=== PATIENT | female | born 1985 | race Caucasian/White ===

== ENCOUNTER 2017-09-11 09:47 | Inpatient (IN) | payer OTHER ==
[2017-09-11] MEDS ORDERED: OXYTOCIN 10 UNIT/ML 1 ML VIAL IM PRN (11:12)
[2017-09-11] MEDS ORDERED: CARBOPROST TROMETHAMINE 250 MCG/ML 1 ML AMP IM PRN (11:12)
[2017-09-11] MEDS ORDERED: LIDOCAINE 1% (PF) 10 MG/ML (30 ML SDV) SQ PRN (11:12)
[2017-09-11] MEDS ORDERED: METHYLERGONOVINE 0.2 MG/ML 1 ML AMP IM PRN (11:12)
[2017-09-11] MEDS ORDERED: TERBUTALINE 1 MG/ML VIAL SQ PRN (11:12)
[2017-09-11 11:30] LABS: Basophils % (A) 0 %; Eosinophils # (A) 0.1 k/uL (0-0.7); Eosinophils % (A) 1 %; HCT 39.1 % (34.0-46.0); HGB 13.5 gm/dL (11.4-16.0); Lymphocytes # (A) 1.3 k/uL (1.0-4.8); Lymphocytes % (A) 10 %; MCH 32.5 pg (25.0-35.0); MCHC 34.7 g/dL (31.0-37.0); MCV 93.8 fL (80.0-100.0); Mean Platelet Volume 6.9; Monocytes # (A) 0.5 k/uL (0-1.0); Monocytes % (A) 4 %; Neutrophils # (A) 10.5 k/uL (1.3-7.7); Neutrophils % (A) 84 %; Platelet Count 255 k/uL (150-450); RBC 4.16 m/uL (3.80-5.40); RDW 12.9 % (11.5-15.5); WBC 12.5 k/uL (3.8-10.6)
[2017-09-11 11:36] VITALS: BMI 27.6
[2017-09-11] MEDS: LACTATED RINGERS 1,000 ML IV SCH (11:52)
--- NOTE | 2017-09-11 13:26 | P.HPOB ---
History of Present Illness H&P Date: 09/11/17 Chief Complaint: IUP @ 37 2/7 weeks, Active labor This is a very pleasant 31-year-old 2 para 0100 at 37-2/7 weeks with an estimated due date of 09/30/2017. Patient presents with complaints of contractions every 5 minutes and was noted to be 3 cm on initial exam. She denies loss of fluid, vaginal bleeding. She does have a history of a prior 26 week vaginal delivery On blood work blood type of O+, rubella immune, hepatitis B surface antigen negative, GBS negative, HIV negative, RPR nonreactive She has been receiving care with Dr. Moraes since 10 weeks of , positive UDS for marijuana as of 08/28/2017. Review of Systems Constitutional: Denies chills, Denies fever Ears, nose, mouth and throat: Denies headache Cardiovascular: Reports edema Respiratory: Denies cough, Denies dyspnea Gastrointestinal: Denies constipation, Denies diarrhea Genitourinary: Reports Past Medical History Additional Past Medical History / Comment(s): Degenerative disc disease History of Any Multi-Drug Resistant Organisms: None Reported Past Surgical History: No Surgical Hx Reported Past Anesthesia/Blood Transfusion Reactions: No Reported Reaction Past Psychological History: No Psychological Hx Reported Smoking Status: Current every day smoker - Past Family History Father Family Medical History: Cancer Additional Family Medical History / Comment(s): Bone and Lung Medications and Allergies Home Medications Medication Instructions Recorded Confirmed Type Pnv,Calcium 72/Iron/Folic Acid 1 tab PO DAILY 09/11/17 09/11/17 History [ Plus Tablet] Allergies Allergy/AdvReac Type Severity Reaction Status Date / Time Penicillins Allergy Swelling Verified 09/11/17 10:15 Exam Osteopathic Statement: *. No significant issues noted on an osteopathic structural exam other than those noted in the History and Physical/Consult. - Vital Signs Vital signs: Vital Signs Temp Pulse Resp BP 09/11/17 11:29 16 108/68 09/11/17 10:16 97.3 F L 85 16 116/66 Intake and Output 09/10/17 09/11/17 09/11/17 22:59 06:59 14:59 Other: Weight 62.142 kg - OBG Physical Exam Abdomen: gravid Cervix: 3/70/-3 Uterus: gravid and appropriate for GA Results Result Diagrams: 09/11/17 11:10 Abnormal Lab Results - Last 24 Hours (Table) 09/11/17 Range/Units 11:10 WBC 12.5 H (3.8-10.6) k/uL Neutrophils # 10.5 H (1.3-7.7) k/uL Assessment and Plan (1) Active labor at term Current Visit: Yes Status: Acute Code(s): DKM9833 - SNOMED Code(s): 03201852 (2) Term Current Visit: Yes Status: Acute Code(s): Z34.80 - ENCOUNTER FOR SUPRVSN OF NORMAL , UNSP TRIMESTER SNOMED Code(s): 13103608 (3) Marijuana use Current Visit: Yes Status: Acute Code(s): F12.90 - CANNABIS USE, UNSPECIFIED , UNCOMPLICATED SNOMED Code(s): 107142301 Plan: We'll admit to labor and delivery for expectant management. Amniotomy when appropriate. Patient declines epidural at this time.
--- NOTE | 2017-09-11 13:55 | P.MSEPDOC ---
Presenting Problems - Arrival Data Date of Arrival on Unit: 09/11/17 Time of Arrival on Unit: 09:30 Mode of Transport: Ambulatory - Complaint OB-Reason for Admission/Chief Complaint: Possible Onset of Labor Comment: Contractions; 10/20 Medical History - Information : 2 Para: 1 Term: 0 : 1 Abortions: Spontaneous or Elective: 0 Number of Living Children: 1 - Gestational Age Gestational Age by YUMIKO (wks/days): 37 Weeks and 2 Days - History Complications: Smoker Review of Systems - Review of Systems Constitutional: No problems Breast: No problems ENT: No problems Cardiovascular: No problems Respiratory: No problems Gastrointestinal: No problems Genitourinary: No problems Musculoskeletal: No problems Neurological: No problems Skin: No problems Vital Signs - Temperature Temperature: 97.3 F Temperature Source: Temporal Artery Scan - Pulse Right Sitting Brachial Pulse Rate: 85 Pulse Assessment Method: Automatic Cuff - Respirations Respiratory Rate: 16 Oxygen Delivery Method: Room Air - Blood Pressure Left Arm Sitting Blood Pressure: 108/68 Blood Pressure Mean: 81 Blood Pressure Source: Automatic Cuff Medical Screen Scoring (Pre) - Cervical Exam Dilation: 1-3 cm = 1 Effacement: More than 50% = 2 Membranes: Intact - Uterine Contractions Duration: > 40 seconds = 2 Intensity: Contraction palpated strong = 1 - Maternal Vital Signs Maternal Temperature: N/A Maternal Blood Pressure: N/A Signs of Preeclampsia: N/A Maternal Respirations: N/A - Assessment Baseline FHR: 140 Heart Rate - NICHD Category: Category I (Normal) = 0 NST: Reactive Position: N/A Station: N/A - Total Score Total Score (Pre): 6 - Level of Risk Level of Risk: Medium (6-9) Physician Notification (Pre) - Physician Notified Physician Notified Date: 09/11/17 Physician Notified Time: 11:00 Physician/Practitioner Notifed:: Martha Spoke With: Martha New Order Received: Yes - Notification Comment Comment: Admit for labor Disposition - Disposition OB Disposition: Admit, LDRP Suite Discharge Date: 09/11/17 Discharge Time: 11:00 I agree with the RN Medical Screening Exam: Yes Risk & Benefit of care provided described in d/c instruction: Yes Diagnosis: RELATED CONDITIONS, UNSPECIFIED, THIRD TRIMESTER
[2017-09-11] MEDS: BUTORPHANOL 1 MG/ML 1 ML VIAL IV PRN ×2 (13:56→16:40)
[2017-09-11 14:19] LABS: Amphetamine Screen,Urine Not Detected (NotDetected); Barbiturate Screen,Urine Not Detected (NotDetected); Benzodiazepines Screen,Urine Not Detected (NotDetected); Cocaine Screen,Urine Not Detected (NotDetected); Methadone Screen, Urine Not Detected (NotDetected); Opiate Screen,Urine Not Detected (NotDetected); Oxycodone Screen, Urine Not Detected (NotDetected); Phencyclidine Screen,Urine Not Detected (NotDetected); Tricyclic Antidepressant,Urine Not Detected (NotDetected); Urn Cannabinoid Scrn Detected (NotDetected)
[2017-09-11] MEDS ORDERED: diphenhydrAMINE 25 MG CAP PO PRN (16:57)
[2017-09-11] MEDS ORDERED: WITCH HAZEL 1 EACH MED..PAD TOPICAL PRN (16:57)
[2017-09-11] MEDS ORDERED: SIMETHICONE 80 MG CHEWABLE PO PRN (16:57)
[2017-09-11] MEDS ORDERED: ACETAMINOPHEN TAB 325 MG TAB PO PRN (16:57)
[2017-09-11] MEDS ORDERED: diphenhydrAMINE 50 MG/ML 1 ML VIAL IVP PRN ×2 (16:57)
[2017-09-11] MEDS ORDERED: ZOLPIDEM 5 MG TAB PO PRN (16:57)
[2017-09-11] MEDS ORDERED: IBUPROFEN 600 MG TAB PO PRN (16:57)
[2017-09-11] MEDS ORDERED: BENZOCAINE/MENTHOL SPRAY 1 GM/SPRAY AEROSOL TOPICAL PRN (16:57)
[2017-09-11] MEDS ORDERED: HYDROCORTISONE 2.5% RECTAL CREAM 30 GM TUBE RECTAL PRN (16:57)
[2017-09-11] MEDS ORDERED: LANOLIN CREAM 5 GM TUBE TOPICAL PRN (16:57)
[2017-09-11] MEDS ORDERED: diphenhydrAMINE 50 MG CAP PO PRN (16:57)
[2017-09-11] MEDS ORDERED: OXYTOCIN 20 UNITS/1000 ML NS 1,000 ML IV SCH (17:00)
[2017-09-12 05:42] VITALS: RESP 16
[2017-09-12] MEDS: SENNOSIDES-DOCUSATE SODIUM 1 EACH TAB PO SCH ×2 (05:56→12:44)
[2017-09-12] MEDS: LACTATED RINGERS 1,000 ML IV SCH (05:56)
[2017-09-12 08:02] LABS: Basophils % (A) 0 %; Eosinophils # (A) 0.1 k/uL (0-0.7); Eosinophils % (A) 0 %; HCT 33.1 % (34.0-46.0); HGB 11.1 gm/dL (11.4-16.0); Lymphocytes # (A) 1.6 k/uL (1.0-4.8); Lymphocytes % (A) 9 %; MCH 32.2 pg (25.0-35.0); MCHC 33.6 g/dL (31.0-37.0); MCV 95.7 fL (80.0-100.0); Mean Platelet Volume 7.3; Monocytes # (A) 0.9 k/uL (0-1.0); Monocytes % (A) 5 %; Neutrophils # (A) 15.4 k/uL (1.3-7.7); Neutrophils % (A) 85 %; Platelet Count 250 k/uL (150-450); RBC 3.45 m/uL (3.80-5.40); RDW 13.1 % (11.5-15.5); WBC 18.2 k/uL (3.8-10.6)
[2017-09-12] MEDS ORDERED: PRENATAL VIT-IRON-FOLIC ACID 1 EACH CAP PO SCH (09:00)
--- NOTE | 2017-09-12 09:44 | P.DS ---
Providers Date of admission: 09/11/17 10:45 Expected date of discharge: 09/12/17 Attending physician: Beata Thomas Primary care physician: Stated None - Discharge Diagnosis(es) (1) Active labor at term Current Visit: Yes Status: Acute (2) Term Current Visit: Yes Status: Acute (3) Marijuana use Current Visit: Yes Status: Acute Hospital Course: This is a very pleasant 31-year-old 2 para 0100 at 37-2/7 weeks that presented to labor and delivery in active labor. Patient progressed through labor amniotomy was performed clear fluid was obtained. Patient progressed to complete and had a normal spontaneous vaginal delivery of a viable male at 1631, weight of 6 lbs. 0 oz. Patient has done well . She tolerated is tolerating a regular diet without nausea or vomiting, she states her pain is well-controlled at this point. She does desire discharge home on day #1. Plan - Discharge Summary Discharge Rx Participant: Yes New Discharge Prescriptions: No Action Pnv,Calcium 72/Iron/Folic Acid [ Plus Tablet] 1 tab PO DAILY Discharge Medication List Pnv,Calcium 72/Iron/Folic Acid [ Plus Tablet] 1 tab PO DAILY 09/11/17 [ History] Follow up Appointment(s)/Referral(s): Eliza Moraes MD [STAFF PHYSICIAN] - 6 Weeks Discharge Disposition: HOME SELF-CARE
[2017-09-12 19:54] VITALS: BP 112/51; PULSE 75; TEMP 98.1
--- NOTE | 2017-09-16 15:35 | P.PROBDLV ---
Vaginal Delivery Note - . Vaginal Delivery Note: This is a very pleasant 31-year-old 2 para 0100 at 37-2/7 weeks with an estimated due date of 09/30/2017. Patient presented to labor and delivery in active labor. Patient progressed through labor eventually amniotomy was performed yielding clear fluid. Patient progressed to complete, began pushing and had a normal spontaneous vaginal delivery of a viable male infant at 1631, placenta was delivered spontaneously intact without difficulty. On inspection the patient's vaginal vault a first-degree vaginal laceration was noted this was repaired in usual fashion with 3-0 Rapide. Estimated blood loss was approximately 300 mL. weight 6 lbs. 0 oz., Apgars of 8-9 at one and 5 minutes respectively. Patient and infant tolerated delivery well and are resting comfortably.
== END 2017-09-12 17:00 | disposition home or self-care (01) | DRG 775 ==
LOC: FBPOP 09:47 → 4FBP 10:45
PROVIDERS: ADMIT Obstetrics & Gynecology Obstetrics; ATTEND Obstetrics & Gynecology Obstetrics
PROC: 0KQM0ZZ Repair Perineum Muscle, Open Approach (ICD-10-PCS; principal; 2017-09-11)
PROC: 10E0XZZ Delivery of Products of Conception, External Approach (ICD-10-PCS; principal; 2017-09-11)
PROC: 10907ZC Drainage of Amniotic Fluid, Therapeutic from Products of Conception, Via Natural or Artificial Opening (ICD-10-PCS; principal; 2017-09-11)
DX: O99.334 Smoking (tobacco) complicating childbirth (principal); Z37.0 Single live birth; F17.200 Nicotine dependence, unspecified, uncomplicated; Z3A.37 37 weeks gestation of pregnancy; O99.324 Drug use complicating childbirth; F12.90 Cannabis use, unspecified, uncomplicated; O71.4 Obstetric high vaginal laceration alone
CPT/HCPCS: 59025; 80306; 85025; 88307; 99213

== ENCOUNTER 2021-12-05 16:55 | Emergency (ER) | payer OTHER ==
[2021-12-05] MEDS ORDERED: SODIUM CHLORIDE 0.9% 1,000 ML IV STA (19:08)
[2021-12-05] MEDS ORDERED: KETOROLAC 15 MG/ML 1 ML VIAL IVP STA (19:08)
--- NOTE | 2021-12-05 19:26 | XR ---
EXAMINATION TYPE: XR KUB 2 views DATE OF EXAM: 12/05/2021 7:11 PM CLINICAL HISTORY: Left lower quadrant pain for days TECHNIQUE: 2 upright views COMPARISON: 02/17/2011 FINDINGS: Scattered gas is seen in non-distended small bowel loops. Gas and fecal material is seen in non-distended colon. There is no visceromegaly, pneumoperitoneum, or abnormal calcification apprecia cassia. The lung bases are clear and the osseous structures are intact. IMPRESSION: No definite acute radiographic process, although pancolonic stool volume is prominent in degree.
--- NOTE | 2021-12-05 19:35 | ED ---
Abdominal Pain HPI - General Chief Complaint: Abdominal Pain Stated Complaint: Abd pain Time Seen by Provider: 12/05/21 19:04 Source: patient, RN notes reviewed Mode of arrival: ambulatory Limitations: no limitations - History of Present Illness Initial Comments: Is a pleasant 36-year-old female who developed left pelvic pain when she was having sexual intercourse about 4 hours ago. Patient now has had constant sharp pain to the left pelvis. Denies vaginal bleeding or vaginal discharge. She had no symptomology prior to onset. Patient states the pain is exacerbated by palpation. Really does not radiate. No headache, no fever or chills, no changes in vision or hearing, no sore throat or difficulty with speech, no neck pain, no chest pain or shortness of breath, no abdominal pain, no nausea or vomiting, no changes in urination or bowel movements, no numbness or tingling, no extremity pain, no skin rashes or lesions. Past medical, surgical, social, and family history reviewed. Last menstrual. November 11 - Related Data Previous Rx's Medication Instructions Recorded HYDROcodone/APAP 5-325MG [[place] 1 tab PO Q6HR PRN 3 Days #12 tab 12/07/21 5-325] Allergies Allergy/AdvReac Type Severity Reaction Status Date / Time banana Allergy Swelling Verified 12/06/21 22:20 Penicillins Allergy Anaphylaxis Verified 12/06/21 22:20 Review of Systems ROS Statement: Those systems with pertinent positive or pertinent negative responses have been documented in the HPI. ROS Other: All systems not noted in ROS Statement are negative. Past Medical History Additional Past Medical History / Comment(s): Degenerative disc disease History of Any Multi-Drug Resistant Organisms: None Reported Past Surgical History: No Surgical Hx Reported Past Anesthesia/Blood Transfusion Reactions: No Reported Reaction Past Psychological History: No Psychological Hx Reported Smoking Status: Current every day smoker Past Alcohol Use History: Occasional Past Drug Use History: Marijuana - Past Family History Father Family Medical History: Cancer Additional Family Medical History / Comment(s): Bone and Lung General Exam - General Exam Comments Initial Comments: He does not appear to be ill or toxic. Patient in distress secondary to left pelvic pain. Limitations: no limitations General appearance: in distress Head exam: Present: atraumatic, normocephalic, normal inspection Eye exam: Present: normal appearance, PERRL, EOMI. Absent: scleral icterus, conjunctival injection, periorbital swelling ENT exam: Present: normal exam, mucous membranes moist Neck exam: Present: normal inspection. Absent: tenderness, meningismus, lymphadenopathy Respiratory exam: Present: normal lung sounds bilaterally. Absent: respiratory distress, wheezes, rales, rhonchi, stridor Cardiovascular Exam: Present: regular rate, normal rhythm, normal heart sounds. Absent: systolic murmur, diastolic murmur, rubs, gallop, clicks GI/Abdominal exam: Present: soft, normal bowel sounds. Absent: distended, tenderness, guarding, rebound, rigid Extremities exam: Present: normal inspection, full ROM, normal capillary refill. Absent: tenderness, pedal edema, joint swelling, calf tenderness Back exam: Present: normal inspection Neurological exam: Present: alert, oriented X3, CN II-XII intact Psychiatric exam: Present: normal affect, normal mood Skin exam: Present: warm, dry, intact, normal color. Absent: rash Course Vital Signs 12/05/21 12/05/21 12/05/21 17:47 20:57 21:23 Temperature 98.4 F Pulse Rate 87 86 92 Pulse Rate [ Handle Turner ] Respiratory 20 20 18 Rate Blood Pressure 117/76 123/77 113/68 Blood Pressure [Right Arm] O2 Sat by Pulse 99 100 100 Oximetry 12/05/21 12/05/21 12/05/21 22:32 22:44 22:58 Temperature 97.6 F Pulse Rate Pulse Rate [ 105 H 99 101 H Handle Turner ] Respiratory 16 16 16 Rate Blood Pressure Blood Pressure 137/73 123/59 128/61 [Right Arm] O2 Sat by Pulse 100 100 100 Oximetry - Reevaluation(s) Reevaluation #1: 12/05/21 20:19 Due to call from the radiologist was concerned about left-sided ovarian torsion. Patient moved to trauma room. Added on a serum hCG. Urine hCG is negative. At it on coagulation studies and type and screen. Reevaluation #2: 12/05/21 20:31 Ultrasound consistent with ovarian torsion. Discussed the case in detail with the on-call tutor. - Consultations Consultation #1: Case discussed in detail with Dr. Guerrero who will come to the ER to evaluate the patient and likely take her to surgery for laparoscopic ovarian detorsion possible salpingo-oophorectomy Medical Decision Making - Medical Decision Making Differential would be mostly consistent with ovarian pathology. Ruptured ovarian cyst versus ovarian torsion given the sudden onset of pain. Think this is less likely to be ureteral colic as the pain started during sexual activity. However, this certainly is within the differential. Patient has no abdominal tenderness elsewhere. Patient only tender in the left pelvic area. Unlikely to be PID. Patient has no vaginal discharge or vaginal bleeding. Given the time of the last Menser., Mittelschmerz as a possibility as well. Transvaginal ultrasound reveals enlarged and heterogenous left ovary with no discernible arterial blood flow within the ovary. According to radiology, could see some venous flow inside the ovary. Question portion. Moderate amount of free fluid seen within the left adnexa. Some free fluid seen in the posterior cul-de-sac. Left ovary measured 4.3 x 4.1 x 3.5 cm. Right ovary was unremarkable. Uterus unremarkable. - Lab Data Result diagrams: 12/05/21 08:25 12/05/21 08:25 Lab Results 12/05/21 12/05/21 12/05/21 Range/Units 08:25 08:25 08:25 WBC 15.9 H (3.8-10.6) k/uL RBC 4.95 (3.80-5.40) m/uL Hgb 15.5 (11.4-16.0) gm/dL Hct 47.5 H (34.0-46.0) % MCV 96.0 (80.0-100.0) fL MCH 31.2 (25.0-35.0) pg MCHC 32.5 (31.0-37.0) g/dL RDW 12.0 (11.5-15.5) % Plt Count 257 (150-450) k/uL MPV 7.6 Neutrophils % 79 % Lymphocytes % 14 % Monocytes % 3 % Eosinophils % 2 % Basophils % 1 % Neutrophils # 12.6 H (1.3-7.7) k/uL Lymphocytes # 2.1 (1.0-4.8) k/uL Monocytes # 0.5 (0-1.0) k/uL Eosinophils # 0.4 (0-0.7) k/uL Basophils # 0.2 (0-0.2) k/uL PT 11.2 (9.0-12.0) sec INR 1.0 (<1.2) APTT 25.9 (22.0-30.0) sec Sodium 138 (137-145) mmol/L Potassium 4.4 (3.5-5.1) mmol/L Chloride 103 (98-107) mmol/L Carbon Dioxide 22 (22-30) mmol/L Anion Gap 13 mmol/L BUN 14 (7-17) mg/dL Creatinine 0.82 (0.52-1.04) mg/dL Est GFR (CKD-EPI)AfAm >90 (>60 ml/min/1.73 sqM) Est GFR (CKD-EPI)NonAf >90 (>60 ml/min/1.73 sqM) Glucose 97 (74-99) mg/dL Calcium 9.6 (8.4-10.2) mg/dL Total Bilirubin 0.4 (0.2-1.3) mg/dL AST 23 (14-36) U/L ALT 14 (4-34) U/L Alkaline Phosphatase 50 (38-126) U/L Total Protein 7.5 (6.3-8.2) g/dL Albumin 4.9 (3.5-5.0) g/dL HCG, Qual Not Detected HCG, Quant <2.4 mIU/mL Blood Type Blood Type Confirm Blood Type Recheck Bld Type Recheck Status Antibody Screen Spec Expiration Date 12/05/21 12/05/21 Range/Units 20:19 20:52 WBC (3.8-10.6) k/uL RBC (3.80-5.40) m/uL Hgb (11.4-16.0) gm/dL Hct (34.0-46.0) % MCV (80.0-100.0) fL MCH (25.0-35.0) pg MCHC (31.0-37.0) g/dL RDW (11.5-15.5) % Plt Count (150-450) k/uL MPV Neutrophils % % Lymphocytes % % Monocytes % % Eosinophils % % Basophils % % Neutrophils # (1.3-7.7) k/uL Lymphocytes # (1.0-4.8) k/uL Monocytes # (0-1.0) k/uL Eosinophils # (0-0.7) k/uL Basophils # (0-0.2) k/uL PT (9.0-12.0) sec INR (<1.2) APTT (22.0-30.0) sec Sodium (137-145) mmol/L Potassium (3.5-5.1) mmol/L Chloride (98-107) mmol/L Carbon Dioxide (22-30) mmol/L Anion Gap mmol/L BUN (7-17) mg/dL Creatinine (0.52-1.04) mg/dL Est GFR (CKD-EPI)AfAm (>60 ml/min/1.73 sqM) Est GFR (CKD-EPI)NonAf (>60 ml/min/1.73 sqM) Glucose (74-99) mg/dL Calcium (8.4-10.2) mg/dL Total Bilirubin (0.2-1.3) mg/dL AST (14-36) U/L ALT (4-34) U/L Alkaline Phosphatase (38-126) U/L Total Protein (6.3-8.2) g/dL Albumin (3.5-5.0) g/dL HCG, Qual HCG, Quant mIU/mL Blood Type O Positive Blood Type Confirm O Positive Blood Type Recheck No Previous Record Bld Type Recheck Status CABO Indicated Antibody Screen NEGATIVE Spec Expiration Date 12/08/20212318 Disposition Clinical Impression: Ovarian torsion, acquired Disposition: ADMITTED IP TO THIS [facility] Condition: Stable Instructions (If sedation given, give patient instructions): *Surgery [facility] - Laparoscopy Discharge Instructions Additional Instructions: Patient can expect vaginal bleeding post surgery, [id number] ibuprofen 600 mg as needed for pain. Patient may experience abdominal bloating with tenderness in the shoulder secondary to gas distention of the abdomen during surgery. Patient is asked to call the office and make an appointment for a two-week postoperative check. Is patient prescribed a controlled substance at d/c from ED?: No Referrals: Beata Thomas DO [Doctor of Osteopathic Medicine] - (2 weeks ) Time of Disposition: 20:35
--- NOTE | 2021-12-05 20:19 | US ---
EXAMINATION TYPE: US transvaginal DATE OF EXAM: 12/05/2021 COMPARISON: NONE CLINICAL HISTORY: Pelvic pain, rule out ovarian torsion. LLQ pain 3 hours ago during intercourse. The pain was sudden and very sharp, patient still in excruciating pain. No pelvic surgeries. . TECHNIQUE: Transvaginal sonographic images of the pelvis were acquired. Date of LMP: 11/11/21 EXAM MEASUREMENTS: Uterus: 8.3 x 5.0 x 4.6 cm Endometrial Stripe: 0.81 cm Right Ovary: 2.9 x 2.3 x 2.1 cm Left Ovary: 4.3 x 4.1 x 3.5 cm 1. Uterus: Anteverted wnl 2. Endometrium: wnl 3. Right Ovary: wnl 4. Left Ovary: Enlarged and heterogeneous. Could not get arterial flow inside the ovary only around the outside. Could see some venous flow inside the ovary. ? torsion Spectral, color and waveform doppler imaging shows good arterial and venous flow within the ovaries ; there is no evidence for ovarian torsion. 5. Bilateral Adnexa: Moderate amount of free fluid seen in left adnexa 6. Posterior cul-de-sac: Some free fluid seen IMPRESSION: LEFT OVARIAN FINDINGS DETAILED, WITH MODERATE FREE PERITONEAL FLUID: FINDINGS SUSPICIO US FOR LEFT ADNEXAL TORSION. THE SONOGRAPHIC DIFFERENTIAL ALSO INCLUDES ECTOPIC AND HEMORRH AGIC CYST. Ordering clinician notified of results.
[2021-12-05] MEDS ORDERED: NALOXONE 0.4 MG/ML 1 ML VIAL IV PRN (20:37)
[2021-12-05 20:39] LABS: Basophils # (A) 0.2 k/uL (0-0.2); Basophils % (A) 1 %; Eosinophils # (A) 0.4 k/uL (0-0.7); Eosinophils % (A) 2 %; HCT 47.5 % (34.0-46.0); HGB 15.5 gm/dL (11.4-16.0); Lymphocytes # (A) 2.1 k/uL (1.0-4.8); Lymphocytes % (A) 14 %; MCH 31.2 pg (25.0-35.0); MCHC 32.5 g/dL (31.0-37.0); Mean Platelet Volume 7.6; Monocytes # (A) 0.5 k/uL (0-1.0); Monocytes % (A) 3 %; Neutrophils # (A) 12.6 k/uL (1.3-7.7); Neutrophils % (A) 79 %; Platelet Count 257 k/uL (150-450); RBC 4.95 m/uL (3.80-5.40); WBC 15.9 k/uL (3.8-10.6)
[2021-12-05] MEDS ORDERED: MORPHINE SULFATE 4 MG/ML SYRINGE IV STA (20:42)
[2021-12-05] MEDS ORDERED: SODIUM CHLORIDE 0.9% 1,000 ML IV SCH (20:45)
[2021-12-05 20:47] LABS: HCG,Qualitative Serum Not Detected
[2021-12-05 20:50] LABS: Partial Thromboplastin Time 25.9 sec (22.0-30.0); Prothrombin Time 11.2 sec (9.0-12.0)
[2021-12-05 20:51] LABS: ALT 14 U/L (4-34); AST 23 U/L (14-36); African American GFR (CKD) >90 (>60 ml/min/1.73 sqM); Albumin 4.9 g/dL (3.5-5.0); Alkaline Phosphatase 50 U/L (38-126); Anion Gap 13 mmol/L; Blood Urea Nitrogen 14 mg/dL (7-17); Calcium 9.6 mg/dL (8.4-10.2); Carbon Dioxide 22 mmol/L (22-30); Chloride 103 mmol/L (98-107); Glucose 97 mg/dL (74-99); Non-African American GFR(CKD) >90 (>60 ml/min/1.73 sqM); Potassium 4.4 mmol/L (3.5-5.1); Sodium 138 mmol/L (137-145); Total Bilirubin 0.4 mg/dL (0.2-1.3); Total Protein 7.5 g/dL (6.3-8.2)
[2021-12-05] MEDS ORDERED: ACETAMINOPHEN IV (For NPO) 680 MG in EMPTY BAG 1 BAG IVPB STA (21:02)
[2021-12-05 21:07] LABS: HCG,Quantitative Serum <2.4 mIU/mL
[2021-12-05] MEDS ORDERED: SUGAMMADEX SODIUM 200 MG/2 ML SDV IV ONE (21:28)
[2021-12-05] MEDS ORDERED: SUCCINYLCHOLINE CHLORIDE 200 MG/10 ML VIAL IV ONE (21:28)
[2021-12-05] MEDS ORDERED: fentaNYL (PF) 50 MCG/ML 2 ML AMP ONE (21:28)
[2021-12-05] MEDS ORDERED: ONDANSETRON 4 MG/2 ML VIAL ONE (21:28)
[2021-12-05] MEDS ORDERED: DEXAMETHASONE SOD PHOSPHATE 10 MG/ML 1 ML VIAL ONE (21:28)
[2021-12-05] MEDS ORDERED: PROPOFOL 10 MG/ML 20 ML VIAL IV ONE ×2 (21:28)
[2021-12-05] MEDS ORDERED: ACETAMINOPHEN IV (For NPO) 1,000 MG/100 ML VIAL ONE (21:28)
[2021-12-05] MEDS ORDERED: MIDAZOLAM 2 MG/2 ML VIAL ONE (21:28)
[2021-12-05] MEDS ORDERED: ROCURONIUM 10 MG/ML (5 ML VIAL) IV ONE (21:28)
[2021-12-05] MEDS ORDERED: IV FLUID CONTINUATION 1,000 ML IV ONE (21:34)
[2021-12-05] MEDS ORDERED: BUPIVACAINE (PF) 0.25% 30 ML VIAL SQ ONE (22:15)
[2021-12-05] MEDS ORDERED: LACTATED RINGERS 1,000 ML IV ONE (22:36)
--- NOTE | 2021-12-05 22:39 | P.HPOB ---
History of Present Illness H&P Date: 12/05/21 Chief Complaint: Left lower quadrant pain, ovarian torsion This is a 36-year-old non female that presented to the emergency department with complaints of left-sided pelvic pain proximally 4 hours ago. Patient states the pain is now constant and sharp in the left pelvis. Patient denies vaginal bleeding. Pain was noted to present during intercourse, patient denies bleeding. Review of Systems Constitutional: Denies chills, Denies fatigue, Denies fever Ears, nose, mouth and throat: Denies headache Cardiovascular: Denies leg edema Respiratory: Denies dyspnea Gastrointestinal: Reports abdominal pain, Denies constipation, Denies diarrhea, Denies nausea, Denies vomiting Genitourinary: Denies abnormal vaginal bleeding, Denies Menstruation: Reports period normal Past Medical History Additional Past Medical History / Comment(s): Degenerative disc disease History of Any Multi-Drug Resistant Organisms: None Reported Past Surgical History: No Surgical Hx Reported Past Anesthesia/Blood Transfusion Reactions: No Reported Reaction Past Psychological History: No Psychological Hx Reported Smoking Status: Current every day smoker Past Alcohol Use History: Occasional Past Drug Use History: Marijuana - Past Family History Father Family Medical History: Cancer Additional Family Medical History / Comment(s): Bone and Lung Medications and Allergies Home Medications Medication Instructions Recorded Confirmed Type No Known Home Medications 12/05/21 12/05/21 History Allergies Allergy/AdvReac Type Severity Reaction Status Date / Time Penicillins Allergy Anaphylaxis Verified 12/05/21 21:01 Exam Osteopathic Statement: *. No significant issues noted on an osteopathic structural exam other than those noted in the History and Physical/Consult. 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 Patient is clutching the rales of the ER cart, patient appears painful. Breathing is noted to nonlabored, heart has a regular rhythm, abdomen is tender to palpation, guarding is appreciated. No lower quadrant extremity edema is appreciated, genitourinary exam is deferred. Results Result Diagrams: 12/05/21 08:25 12/05/21 08:25 Abnormal Lab Results - Last 24 Hours (Table) 12/05/21 Range/Units 08:25 WBC 15.9 H (3.8-10.6) k/uL Hct 47.5 H (34.0-46.0) % Neutrophils # 12.6 H (1.3-7.7) k/uL Assessment and Plan (1) LLQ abdominal pain Current Visit: Yes Status: Acute Code(s): R10.32 - LEFT LOWER QUADRANT PAIN SNOMED Code(s): 248674332 (2) Ovarian torsion, acquired Current Visit: Yes Status: Acute Code(s): N83.519 - TORSION OF OVARY AND OVARIAN PEDICLE, UNSPECIFIED SIDE SNOMED Code(s): 41498879 Plan: 36-year-old non female with complaints of left lower quadrant pain noted proximally 4-5 hours ago. Patient presented to the emergency department with these complaints. On ultrasound suspicion for left-sided ovarian torsion is appreciated. Ovary is enlarged at 4 cm a moderate amount of pelvic fluid is appreciated. Patient is counseled on need for operative laparoscopy with possible left sopping oophorectomy given ultrasound findings. Risks of surgery are reviewed patient states understanding and wishes to proceed. Patient's is at the bedside for this discussion as well. Consent is obtained.
[2021-12-05 22:44] VITALS: RESP 16; TEMP 97.6
--- NOTE | 2021-12-05 22:44 | P.OP ---
Date of Procedure: 12/05/21 Preoperative Diagnosis: Ovarian torsion, left lower quadrant pain Postoperative Diagnosis: Same plus left hemorrhagic cyst, hemoperitoneum Procedure(s) Performed: Operative laparoscopy with left salpingo-oophorectomy, evacuation of hemoperitoneum Anesthesia: TREVOR Surgeon: Beata Thomas Estimated Blood Loss (ml): 25 IV fluids (ml): 900 Urine output (ml): 200 Pathology: other (Left fallopian tube and ovary) Condition: stable Disposition: PACU Indications for Procedure: 36-year-old non female with acute onset of left lower quadrant pain during intercourse. Patient presented to the emergency department ultrasound suspicious for ovarian torsion with a moderate amount of free fluid in the pelvis. Patient was taken back to the operating suite upon inspection of the patient's pelvis moderate amount of hemoperitoneum was appreciated in the pelvis up to the liver, hemorrhagic ovarian cyst was appreciated. Operative Findings: Moderate amount of hemoperitoneum was appreciated upon entering the abdomen the left ovary was noted to be enlarged and dripping bright red blood, right ovary was noted to be normal in nature appendix was noted to be normal in nature. Upper abdomen was explored and found to be normal in nature. Description of Procedure: Patient was taken back to the operating suite where general anesthesia was obtained without difficulty by the anesthesia department. She was prepped and draped in normal sterile fashion in the dorsal lithotomy position. A red rubber catheter was used to drain the bladder clear yellow urine. A Graves speculum wa s placed the anterior lip of the cervix was visualized and grasped with a single-tooth tenaculum, and acorn uterine manipulator was advanced into the cervix as a means to manipulate the uterus throughout the procedure. The speculum was removed. Attention was then turned the patient's abdomen where in the umbilical fold a small skin incision is made. Through this incision the Veress needles placed. Once the Veress needle was deemed to be in the proper position with a drop of CO2 pressure with insufflation of CO2 gas CO2 insufflation was allowed to occur. A 5 mm trocar with the laparoscope in place placed through the skin incision toward the pneumoperitoneum the above-noted findings are visualized. An additional port site is placed in the left midabdomen this is a 10 mm trocar and sleeve placed under direct visualization. The suction yarding and folding machine operator was used to evacuate the posterior cul-de-sac of a moderate amount of hemoperitoneum. The left ovary was manipulated and found to be dripping of bright red blood the right ovary was visualized and found to be normal the appendix was visualized and found to be normal. The laser was then passed through the right mid abdomen port the developed pelvic ligament was grasped coagulated and transected this continued through the broad toward the uterine ovarian which was coagulated distally and proximally and divided hemostasis was appreciated throughout. Endo Catch bag was then placed into the abdomen the left ovary and fallopian tube was placed into the Endo Catch bag and ovary was delivered through the 10 mm incision port. The pelvis was then irrigated and no further bleeding was appreciated the cul-de-sac was free of any blood or blood clots. The right ovary once again was inspected and found to be normal in nature. At this time all instruments were removed from the patient's abdomen the skin incisions were closed with 4-0 Vicryl in a subcu fashion Steri- Strips and sterile dressings were applied. Attention was then turned the patient's vaginal vault the red rubber catheter was removed along with the acorn uterine manipulator the CO2 tenaculum was taken off of the anterior lip of the cervix and hemostasis was appreciated. All counts were noted to be correct 2 obtained of the procedure. Patient tolerated procedure well and was taken the recovery room awake in stable condition.
[2021-12-05 22:59] VITALS: BP 128/61; PULSE 101
== END 2021-12-05 21:23 | disposition home or self-care (01) ==
LOC: EC 16:55 → 4FBP 23:11
DX: N83.512 Torsion of left ovary and ovarian pedicle (principal); F17.200 Nicotine dependence, unspecified, uncomplicated; Z91.018 Allergy to other foods; Z88.0 Allergy status to penicillin
CPT/HCPCS: 58661; 99284 ×2; 96374 ×2; 96375 ×2; 96361 ×2; 36415; 86900; 86901; 88305; 80053; 85025; 85610; 85730; 86850; 84703; 84702; 74018; 93975; 76830; J2250; J0330; J2270; J1100; J2405; J3010; J0131; J1885; J2704

== ENCOUNTER 2022-04-23 11:30 | Emergency (ER) | payer OTHER ==
[2022-04-23 11:39] VITALS: TEMP 98.2
[2022-04-23] MEDS ORDERED: SODIUM CHLORIDE 0.9% 500 ML 500 ML IV STA (12:06)
[2022-04-23] MEDS ORDERED: fentaNYL (PF) 50 MCG/ML 2 ML AMP IVP STA (12:07)
--- NOTE | 2022-04-23 12:11 | ED ---
Abdominal Pain HPI - General Chief Complaint: Abdominal Pain Stated Complaint: ovarian cyst Time Seen by Provider: 04/23/22 11:59 Source: patient, RN notes reviewed, old records reviewed Mode of arrival: ambulatory - History of Present Illness Initial Comments: 36-year-old female presents ambulatory with complaints of left sided pelvic pain started at 7:00 this morning. States feels similar to when she had a ruptured ovarian cyst on the right in November and underwent an oophorectomy. Patient states that she did start her period this morning but this pain is significantly worse does not feel like menses pain. She did try Motrin with no relief. She denies any fevers. No nausea vomiting or diarrhea. She is a daily smoker. MD Complaint: abdominal pain (left lower) -: hour(s) (5) Location: LLQ (pelvis) Severity scale (1-10): 8 Consistency: constant Improves With: nothing Worsens With: other (sitting) Associated Symptoms: denies other symptoms Treatments Prior to Arrival: NSAIDs - Related Data LMP (females 10-50): this week (today) Previous Rx's Medication Instructions Recorded HYDROcodone/APAP 5-325MG [Cubero 1 tab PO Q6HR PRN 3 Days #12 tab 12/07/21 5-325] Allergies Allergy/AdvReac Type Severity Reaction Status Date / Time banana Allergy Swelling Verified 04/23/22 11:39 Penicillins Allergy Anaphylaxis Verified 04/23/22 11:39 Review of Systems ROS Statement: Those systems with pertinent positive or pertinent negative responses have been documented in the HPI. ROS Other: All systems not noted in ROS Statement are negative. Past Medical History Additional Past Medical History / Comment(s): Degenerative disc disease History of Any Multi-Drug Resistant Organisms: None Reported Past Surgical History: No Surgical Hx Reported Additional Past Surgical History / Comment(s): ovarian cyst right side Past Anesthesia/Blood Transfusion Reactions: No Reported Reaction Past Psychological History: No Psychological Hx Reported Smoking Status: Current every day smoker Past Alcohol Use History: Occasional Past Drug Use History: Marijuana - Past Family History Father Family Medical History: Cancer Additional Family Medical History / Comment(s): Bone and Lung General Exam General appearance: alert, in no apparent distress Head exam: Present: atraumatic Eye exam: Absent: scleral icterus, conjunctival injection, periorbital swelling Respiratory exam: Present: normal lung sounds bilaterally. Absent: respiratory distress, accessory muscle use Cardiovascular Exam: Present: regular rate GI/Abdominal exam: Present: soft, tenderness (Left pelvic and lower abdominal). Absent: distended, rigid Extremities exam: Present: full ROM, normal capillary refill. Absent: pedal edema Neurological exam: Present: alert, oriented X3, normal gait Psychiatric exam: Present: normal affect, normal mood Skin exam: Present: warm, dry, normal color. Absent: rash, cyanosis, diaphore tic, petechiae, pallor Course Vital Signs 04/23/22 04/23/22 11:36 14:32 Temperature 98.2 F Pulse Rate 83 74 Respiratory 16 18 Rate Blood Pressure 134/82 121/78 O2 Sat by Pulse 98 98 Oximetry Medical Decision Making - Medical Decision Making She was given IV fluids Toradol and Cubero with moderate relief. No evidence of leukocytosis hemoglobin and hematocrit are electrolytes unremarkable. Urinalysis negative for infection. Ultrasound read by radiologist showing left ovary not visualized and right ovary within normal limits. Patient states that she had a right nephrectomy in November of last year. Posterior cul-de-sac within normal limits. There is good arterial and venous flow within the right ovary with no evidence of ovarian torsion. According to medical records patient underwent a left oophorectomy in November of last year. Patient's pain is left sided. No right sided pain Patient pain is likely related to her menses. She was directed to follow up with her [facility]. Return to the emergency room with any new or concerning symptoms. - Lab Data Result diagrams: 04/23/22 12:23 04/23/22 12:23 Lab Results 04/23/22 04/23/22 04/23/22 Range/Units 12: 12: 12: WBC 9.8 (3.8-10.6) k/uL RBC 4.73 (3.80-5.40) m/uL Hgb 15.1 (11.4-16.0) gm/dL Hct 43.6 (34.0-46.0) % MCV 92.2 (80.0-100.0) fL MCH 31.9 (25.0-35.0) pg MCHC 34.6 (31.0-37.0) g/dL RDW 12.1 (11.5-15.5) % Plt Count 255 (150-450) k/uL MPV 7.5 Neutrophils % 81 % Lymphocytes % 13 % Monocytes % 4 % Eosinophils % 1 % Basophils % 1 % Neutrophils # 7.9 H (1.3-7.7) k/uL Lymphocytes # 1.3 (1.0-4.8) k/uL Monocytes # 0.4 (0-1.0) k/uL Eosinophils # 0.1 (0-0.7) k/uL Basophils # 0.1 (0-0.2) k/uL Sodium 139 (137-145) mmol/L Potassium 4.7 (3.5-5.1) mmol/L Chloride 106 (98-107) mmol/L Carbon Dioxide 26 (22-30) mmol/L Anion Gap 7 mmol/L BUN 8 (7-17) mg/dL Creatinine 0.69 (0.52-1.04) mg/dL Est GFR (CKD-EPI)AfAm >90 (>60 ml/min/1.73 sqM) Est GFR (CKD-EPI)NonAf >90 (>60 ml/min/1.73 sqM) Glucose 104 H (74-99) mg/dL Plasma Lactic Acid Niels 1.2 (0.7-2.0) mmol/L Calcium 9.6 (8.4-10.2) mg/dL Total Bilirubin 0.5 (0.2-1.3) mg/dL AST 24 (14-36) U/L ALT 21 (4-34) U/L Alkaline Phosphatase 52 (38-126) U/L Total Protein 7.8 (6.3-8.2) g/dL Albumin 4.8 (3.5-5.0) g/dL Urine Color Urine Appearance (Clear) Urine pH (5.0-8.0) Ur Specific Lehr (1.001-1.035) Urine Protein (Negative) Urine Glucose (UA) (Negative) Urine Ketones (Negative) Urine Blood (Negative) Urine Nitrite (Negative) Urine Bilirubin (Negative) Urine Urobilinogen (<2.0) mg/dL Ur Leukocyte Esterase (Negative) Urine RBC (0-5) /hpf Urine WBC (0-5) /hpf Ur Squamous Epith Cells (0-4) /hpf Urine Bacteria (None) /hpf 04/23/22 Range/Units 12:33 WBC (3.8-10.6) k/uL RBC (3.80-5.40) m/uL Hgb (11.4-16.0) gm/dL Hct (34.0-46.0) % MCV (80.0-100.0) fL MCH (25.0-35.0) pg MCHC (31.0-37.0) g/dL RDW (11.5-15.5) % Plt Count (150-450) k/uL MPV Neutrophils % % Lymphocytes % % Monocytes % % Eosinophils % % Basophils % % Neutrophils # (1.3-7.7) k/uL Lymphocytes # (1.0-4.8) k/uL Monocytes # (0-1.0) k/uL Eosinophils # (0-0.7) k/uL Basophils # (0-0.2) k/uL Sodium (137-145) mmol/L Potassium (3.5-5.1) mmol/L Chloride (98-107) mmol/L Carbon Dioxide (22-30) mmol/L Anion Gap mmol/L BUN (7-17) mg/dL Creatinine (0.52-1.04) mg/dL Est GFR (CKD-EPI)AfAm (>60 ml/min/1.73 sqM) Est GFR (CKD-EPI)NonAf (>60 ml/min/1.73 sqM) Glucose (74-99) mg/dL Plasma Lactic Acid Niels (0.7-2.0) mmol/L Calcium (8.4-10.2) mg/dL Total Bilirubin (0.2-1.3) mg/dL AST (14-36) U/L ALT (4-34) U/L Alkaline Phosphatase (38-126) U/L Total Protein (6.3-8.2) g/dL Albumin (3.5-5.0) g/dL Urine Color Light Yellow Urine Appearance Clear (Clear) Urine pH 6.0 (5.0-8.0) Ur Specific Lehr 1.004 (1.001-1.035) Urine Protein Negative (Negative) Urine Glucose (UA) Negative (Negative) Urine Ketones Negative (Negative) Urine Blood Large H (Negative) Urine Nitrite Negative (Negative) Urine Bilirubin Negative (Negative) Urine Urobilinogen <2.0 (<2.0) mg/dL Ur Leukocyte Esterase Negative (Negative) Urine RBC <1 (0-5) /hpf Urine WBC 1 (0-5) /hpf Ur Squamous Epith Cells <1 (0-4) /hpf Urine Bacteria Rare H (None) /hpf Disposition Clinical Impression: Abdominal pain Disposition: HOME SELF-CARE Condition: Good Instructions (If sedation given, give patient instructions): Abdominal Pain (ED) Additional Instructions: Tylenol and/or Motrin as needed for pain. You can also use heat. Please follow-up with your [facility] this week. Return to the emergency room with any new or concerning symptoms. Is patient prescribed a controlled substance at d/c from ED?: No Referrals: Allie Waters MD [Primary Care Provider] - 1-2 days Time of Disposition: 13:48
[2022-04-23 13:03] LABS: ALT 21 U/L (4-34); AST 24 U/L (14-36); African American GFR (CKD) >90 (>60 ml/min/1.73 sqM); Albumin 4.8 g/dL (3.5-5.0); Alkaline Phosphatase 52 U/L (38-126); Anion Gap 7 mmol/L; Blood Urea Nitrogen 8 mg/dL (7-17); Calcium 9.6 mg/dL (8.4-10.2); Carbon Dioxide 26 mmol/L (22-30); Chloride 106 mmol/L (98-107); Glucose 104 mg/dL (74-99); Non-African American GFR(CKD) >90 (>60 ml/min/1.73 sqM); Potassium 4.7 mmol/L (3.5-5.1); Sodium 139 mmol/L (137-145); Total Bilirubin 0.5 mg/dL (0.2-1.3); Total Protein 7.8 g/dL (6.3-8.2)
[2022-04-23 13:04] LABS: Appearance,Urine Clear (Clear); Bacteria,Urine Rare /hpf; Bilirubin,Urine Negative (Negative); Blood,Urine Large (Negative); Color,Urine Light Yellow; Glucose,Urine (UA) Negative (Negative); Ketones,Urine Negative (Negative); Leukocyte Esterase,Urine Negative (Negative); Nitrite,Urine Negative (Negative); Protein,Urine Negative (Negative); RBC,Urine <1 /hpf (0-5); Specific Gravity,Urine 1.004 (1.001-1.035); Squamous Epithelial Cell,Urine <1 /hpf (0-4); Urobilinogen,Urine <2.0 mg/dL (<2.0); WBC,Urine 1 /hpf (0-5)
[2022-04-23 13:11] LABS: Basophils # (A) 0.1 k/uL (0-0.2); Basophils % (A) 1 %; Eosinophils # (A) 0.1 k/uL (0-0.7); Eosinophils % (A) 1 %; HCT 43.6 % (34.0-46.0); HGB 15.1 gm/dL (11.4-16.0); Lymphocytes # (A) 1.3 k/uL (1.0-4.8); Lymphocytes % (A) 13 %; MCH 31.9 pg (25.0-35.0); MCHC 34.6 g/dL (31.0-37.0); MCV 92.2 fL (80.0-100.0); Mean Platelet Volume 7.5; Monocytes # (A) 0.4 k/uL (0-1.0); Monocytes % (A) 4 %; Neutrophils # (A) 7.9 k/uL (1.3-7.7); Neutrophils % (A) 81 %; Platelet Count 255 k/uL (150-450); RBC 4.73 m/uL (3.80-5.40); RDW 12.1 % (11.5-15.5); WBC 9.8 k/uL (3.8-10.6)
--- NOTE | 2022-04-23 13:22 | US ---
EXAMINATION TYPE: US transvaginal DATE OF EXAM: 04/23/2022 COMPARISON: 12/05/2021 CLINICAL HISTORY: Left pelvic sharp acute pain. History of oopherectomy in November 2021. Patient stat es right ovary removed TECHNIQUE: Transvaginal (TV Date of LMP: 04/23/2022 EXAM MEASUREMENTS: Uterus: 7.8 x 4.2 x 4.2 cm Endometrial Stripe: 0.61 cm Right Ovary: 3.5 x 2.1 x 2.5 cm Left Ovary: Presumed surgically absent 1. Uterus: Anteverted wnl 2. Endometrium: wnl 3. Right Ovary: wnl 4. Left Ovary: Not visualized. Although patient states right ovary removed, based on prior exam it is presumed the left ovary is surgically absent Spectral, color and waveform doppler imaging shows good arterial and venous flow within the right o vary; there is no evidence for ovarian torsion. 5. Bilateral Adnexa: wnl 6. Posterior cul-de-sac: wnl IMPRESSION: 1. No suspicious left lower quadrant pelvic abnormality by ultrasound
[2022-04-23] MEDS ORDERED: HYDROcodone/APAP 5-325MG 1 EACH TAB PO STA (13:41)
[2022-04-23] MEDS ORDERED: KETOROLAC 15 MG/ML 1 ML VIAL IVP STA (13:42)
[2022-04-23 14:33] VITALS: BP 121/78; PULSE 74; RESP 18
== END 2022-04-23 14:33 | disposition home or self-care (01) ==
LOC: EC 11:30
DX: R10.32 Left lower quadrant pain (principal); F17.200 Nicotine dependence, unspecified, uncomplicated; F12.90 Cannabis use, unspecified, uncomplicated; Z88.0 Allergy status to penicillin; Z91.018 Allergy to other foods
CPT/HCPCS: 36415; 80053; 83605; 85025; 81001; 93976; 76830; 99284; 96374; 96361; J3010; J1885; 96375